=== PATIENT | female | born 1940 | race African-American/Black ===

== ENCOUNTER 2018-01-12 21:01 | Emergency (ER) | payer OTHER ==
[2018-01-12 21:14] VITALS: BMI 35.7
--- NOTE | 2018-01-12 21:16 | PDOC ---
Rapid Medical Evaluation Time Seen by Provider: 01/12/18 21:10 Medical Evaluation: Allergies Allergy/AdvReac Type Severity Reaction Status Date / Time No Known Allergies Allergy Verified 10/13/16 06:09 01/12/18 21:11 The patient presents with a chief complaint of: High blood pressure. Pt. was in her local pharmacy having her blood pressure checked and it read 185/103. She also hears a buzzing sounds in both ears. The pharmacist recommenced coming to the ED for evaluation I have performed a brief in-person evaluation of this patient; Pertinent physical exam findings: ambulatory, in no respiratory distress. BP 168 /94 here. I have ordered the following: CBC, CMP, EKG The patient will proceed to the ED for further evaluation. Discharge Disposition - Referrals Referrals: Jasson Hayes MD [Primary Care Provider] - - Patient Instructions - Post Discharge Activity
--- NOTE | 2018-01-12 23:13 | PDOC ---
History of Present Illness - General Chief Complaint: Blood Pressure Problem Stated Complaint: HIGH BLOOD PRESURE Time Seen by Provider: 01/12/18 21:10 History Source: Patient - History of Present Illness Initial Comments: 01/13/18 00:04 77 year old female with ringing in both ears since this morning. patient reports that she took 10 mg of Norvasc with no improvement of symptoms. patient went to [facility] prior to arrival noted b/p to be high 160-95. advised by pharmacist to come to the ER for evaluation. patient reports nausea and ringing in ears. 01/13/18 01:33 Past History - Past Medical History Allergies/Adverse Reactions: Allergies Allergy/AdvReac Type Severity Reaction Status Date / Time No Known Allergies Allergy Verified 01/12/18 21:12 Home Medications: Ambulatory Orders Aspirin [ASA -] 81 mg PO DAILY 10/13/16 Hydrocodone/Acetaminophen [Vicodin 5-300 mg Tablet] 1 each PO DAILY #10 tablet MDD 2 10/13/16 Methotrexate [Mexate -] 5 mg PO DAILY 10/13/16 Olmesartan/Hydrochlorothiazide [Benicar Hct 40-25 mg Tablet] 1 each PO DAILY COPD: No Diabetes: Yes HTN: Yes - Suicide/Smoking/Psychosocial Hx Smoking History: Never smoked Hx Alcohol Use: No Drug/Substance Use Hx: No *Physical Exam - Vital Signs Last Vital Signs Temp Pulse Resp BP Pulse Ox 98 F 91 H 18 168/94 99 01/12/18 21:12 01/12/18 21:12 01/12/18 21:12 01/12/18 21:12 01/12/18 21:12 ED Treatment Course - LABORATORY CBC & Chemistry Diagram: 01/13/18 00:00 01/13/18 00:00 Medical Decision Making - Medical Decision Making 01/13/18 01:40 b/p 152/85 *DC/Admit/Observation/Transfer Diagnosis at time of Disposition: Hypertension Qualifiers: Hypertension type: essential hypertension Qualified Code(s): I10 - Essential ( primary) hypertension - Discharge Dispostion Disposition: HOME - Referrals Referrals: Jasson Hayes MD [Primary Care Provider] - 24 hours - Patient Instructions Printed Discharge Instructions: DI for High Blood Pressure Additional Instructions: monitor your b/p at home follow up with your doctor as soon as possible return to the ER if symptoms worsen. - Post Discharge Activity
--- NOTE | 2018-01-12 23:14 | PDOC ---
*Physical Exam - Vital Signs Last Vital Signs Temp Pulse Resp BP Pulse Ox 98 F 91 H 18 168/94 99 01/12/18 21:12 01/12/18 21:12 01/12/18 21:12 01/12/18 21:12 01/12/18 21:12 Medical Decision Making - Medical Decision Making 01/12/18 23:14 agree with care from [facility] *DC/Admit/Observation/Transfer - Referrals Referrals: Jasson Hayes MD [Primary Care Provider] - - Patient Instructions - Post Discharge Activity
[2018-01-13 00:23] LABS: BASO % 1.2 % (0-2.0); EOS % 3.5 % (0-4.5); HEMATOCRIT 38.9 % (32.4-45.2); HEMOGLOBIN 12.8 GM/dL (10.7-15.3); LYMPH % 35.6 % (8-40); MCH 29.1 pg (25.7-33.7); MEAN CELL VOLUME 88.2 fl (80-96); MEAN PLT VOLUME 10.2 fl (7.5-11.1); MONO % 9.7 % (3.8-10.2); PLATELET COUNT 201 K/MM3 (134-434); RBC 4.41 M/mm3 (3.60-5.2); RDW 16.8 % (11.6-15.6); WHITE BLOOD COUNT 4.8 K/mm3 (4.0-10.0)
[2018-01-13 00:44] LABS: ALBUMIN 3.7 g/dl (3.4-5.0); ANION GAP 12 (8-16); BILIRUBIN,TOTAL 0.4 mg/dL (0.2-1.0); BLOOD UREA NITROGEN 21 mg/dL (7-18); CHLORIDE 110 mmol/L (98-107); CO2 25 mmol/L (21-32); CREATININE 0.8 mg/dL (0.55-1.02); GLUCOSE,RANDOM 134 mg/dL (74-106); POTASSIUM 4.3 mmol/L (3.5-5.1); SGOT/AST 18 U/L (15-37); SGPT/ALT 18 U/L (12-78); SODIUM 147 mmol/L (136-145); TOT PROT 7.7 g/dl (6.4-8.2)
[2018-01-13 00:45] LABS: ALK PHOS 82 U/L (45-117)
[2018-01-13 02:01] VITALS: BP 152/89; PULSE 89; TEMP 98.7
[2018-01-13] MEDS ORDERED: ONDANSETRON *ODT* 4 MG TABLET ONE (02:09)
--- NOTE | 2018-01-13 09:54 | EKG ---
Test Reason : Blood Pressure : / mmHG Vent. Rate : 062 BPM Atrial Rate : 062 BPM P-R Int : 184 ms QRS Dur : 082 ms QT Int : 430 ms P-R-T Axes : 066 -07 -07 degrees QTc Int : 436 ms POOR DATA QUALITY, INTERPRETATION MAY BE ADVERSELY AFFECTED NORMAL SINUS RHYTHM MINIMAL VOLTAGE CRITERIA FOR LVH, MAY BE NORMAL VARIANT POOR R WAVE PROGRESSION NO PREVIOUS ECGS AVAILABLE Confirmed by MICHELA MAYO, RIGOBERTO ([id number]) on 01/13/2018 9:54:33 AM Referred By: Confirmed By:RIGOBERTO ABERNATHY MD
== END 2018-01-13 02:13 | disposition home or self-care (01) ==
LOC: JER 21:01
DX: I10 Essential (primary) hypertension (principal); E11.9 Type 2 diabetes mellitus without complications; Z79.84 Long term (current) use of oral hypoglycemic drugs
CPT/HCPCS: 36415; 80053; 84484; 85025; 93005; 93010; 99282-25

== ENCOUNTER 2018-04-20 15:49 | Inpatient (IN) | payer OTHER ==
--- NOTE | 2018-04-20 16:37 | PDOC ---
History of Present Illness - General Chief Complaint: Shortness of Breath Stated Complaint: Revisit, Lab Variance Time Seen by Provider: 04/20/18 16:35 History Source: Patient Exam Limitations: No Limitations - History of Present Illness Initial Comments: This is a 78 YOF with h/o HTN, HLD, psoriasis (on methotrexate) who p/w 5 days of generalized weakness, lightheadedness on standing, pre-syncope, GOULD with chest tightness on exertion, and lower blood pressure than normal for her. She notes having to stop taking her blood pressure medications last weekend because her blood pressure went as low as the low 100s systolic, which is much lower than normal for her. She was being seen at [facility] today for these symptoms and had an EKG done showing new T-wave inversions in II, III, and aVF as well as Q waves in III and aVF, in addition to T wave abnormalities anteriorly. The patient states her SOB has improved with O2 via NC. She denies f/c/n/v/d/c, dysuria, abdominal pain, back pain, or other symptoms. She takes a baby ASA daily at home but has not taken full-dose ASA today or recently. Past History - Past Medical History Allergies/Adverse Reactions: Allergies Allergy/AdvReac Type Severity Reaction Status Date / Time No Known Allergies Allergy Verified 01/12/18 21:12 Home Medications: Ambulatory Orders Aspirin [ASA -] 81 mg PO DAILY 10/13/16 Methotrexate [Mexate -] 5 mg PO DAILY 10/13/16 Olmesartan/Hydrochlorothiazide [Benicar Hct 40-25 mg Tablet] 1 each PO DAILY Diclofenac Sodium [Diclofenac Sodium ER] 100 mg PO DAILY 04/20/18 Empagliflozin [Jardiance] 10 mg PO DAILY 04/20/18 Fluconazole [Diflucan] 150 mg PO ONCE 04/20/18 Multivitamins [Tab-A-Vit -] 1 tab PO DAILY 04/20/18 Nifedipine ER [Procardia Xl -] 30 mg PO DAILY 04/20/18 Simvastatin 10 mg PO DAILY 04/20/18 Heparin - 5,000 unit IVPUSH PRN PRN vial 04/21/18 Heparin - 25,000 unit IV TITR vial 04/21/18 COPD: No Diabetes: Yes HTN: Yes - Suicide/Smoking/Psychosocial Hx Smoking History: Never smoked Hx Alcohol Use: No Drug/Substance Use Hx: No Review of Systems - Review of Systems Able to Perform ROS?: Yes Constitutional: Yes: Weakness. No: Chills, Fever, Unexplained wgt Loss HEENTM: No: Nose Congestion, Throat Pain Respiratory: Yes: Cough (dry), Shortness of Breath Cardiac (ROS): Yes: Chest Pain (with exertion), Lightheadedness, Other (pre- syncope). No: Palpitations ABD/GI: Yes: Nausea (minimal during exertion). No: Constipated, Diarrhea, Vomiting : No: Burning, Dysuria Musculoskeletal: No: Back Pain, Neck Pain Integumentary: No: Bruising, Rash Neurological: No: Headache, Numbness, Tingling, Weakness Endocrine: No: Unexplained Weight Gain, Unexplained Weight Loss *Physical Exam - Vital Signs Last Vital Signs Temp Pulse Resp BP Pulse Ox 98 F 90 20 109/65 100 04/20/18 16:28 04/20/18 16:28 04/20/18 16:28 04/20/18 16:28 04/20/18 16:28 - Physical Exam General Appearance: Yes: Nourished, Appropriately Dressed, Obese, Other ( pleasant elderly female on NC who answers questions appropriately, accompanied by family). No: Apparent Distress HEENT: positive: EOMI, ANGELIA, Normal ENT Inspection, Normal Voice, Hearing Grossly Normal. negative: Scleral Icterus (R), Scleral Icterus (L), Nasal Congestion Neck: positive: Trachea midline, Supple. negative: Tender, Rigid Respiratory/Chest: positive: Lungs Clear, Normal Breath Sounds. negative: Respiratory Distress, Crackles, Rhonchi, Stridor, Wheezing Cardiovascular: positive: Regular Rhythm, Regular Rate, S1, S2. negative: JVD, Murmur Gastrointestinal/Abdominal: positive: Normal Bowel Sounds, Soft. negative: Tender, Organomegaly, Pulsatile Mass, Guarding Musculoskeletal: positive: Normal Inspection. negative: Decreased Range of Motion, Vertebral Tenderness Extremity: positive: Normal Capillary Refill, Normal Inspection, Normal Range of Motion. negative: Tender, Cyanosis Integumentary: positive: Normal Color, Dry, Warm. negative: Erythema, Rash, Bruising Neurologic: positive: inpatient auditor II-XII NML intact, Fully Oriented, Alert, Normal Mood/ Affect, Normal Response, Motor Strength 5/5. negative: EOM Palsy, Facial Droop , Numbness, Sensory Deficit, Confused, Disoriented ED Treatment Course - LABORATORY CBC & Chemistry Diagram: 04/20/18 16:36 04/20/18 16:36 Medical Decision Making - Medical Decision Making Elderly diabetic female Pt p/w 5 days generalized weakness, GOULD, chest pain on exertion. Sent by provider at [facility] after having new T-wave inversions and additional ST -T changed on EKG. Initial Vital Signs Temp Pulse Resp BP Pulse Ox 98 F 90 20 109/65 100 04/20/18 16:28 04/20/18 16:28 04/20/18 16:28 04/20/18 16:28 04/20/18 16:28 Exam: Results as noted in Physical Exam section. DDX IBNLT: ACS, pericarditis, tamponade, aortic dissection, AAA, PTX, PE, esophageal tear, esophagitis (e.g. pill, infectious), esophageal stricture, esophageal FB, gastritis, PUD, pancreatitis, cholecystitis, cholangitis, colitis , bowel perforation, PNA/bronchitis, pleurisy, pleuritis, MVP, pulmonary HTN, musculoskeletal, panic/anxiety, etc. W/U ordered: CBCD CMP Mg Phos Lipase Troponin CK CKMB Coags T&S Blood gas UA UCx EKG CXR. TX ordered: monitor, ASA 324, O2 via NC EKG: Reviewed; results as noted in ECG Review section. CXR: enlarged heart, otherwise nothing acute. Laboratory Tests 04/20/18 04/20/18 04/20/18 16:36 16:36 16:36 WBC 5.7 RBC 4.89 Hgb 14.0 Hct 42.7 MCV 87.3 MCH 28.7 MCHC 32.9 RDW 17.3 H Plt Count 198 MPV 10.5 Absolute Neuts (auto) 3.0 Neutrophils % 52.1 Lymphocytes % 33.5 Monocytes % 11.2 H Eosinophils % 2.1 Basophils % 1.1 Nucleated RBC % 0 PT with INR 13.50 H INR 1.19 H Sodium 141 Potassium 4.1 Chloride 107 Carbon Dioxide 22 Anion Gap 12 BUN 26 H Creatinine 1.4 H Creat Clearance w eGFR 36.37 Random Glucose 122 H Calcium 8.8 Magnesium 2.5 H Total Bilirubin 0.7 AST 25 ALT 20 Alkaline Phosphatase 68 Creatine Kinase 158 Troponin I 0.17 H B-Natriuretic Peptide 7372.13 H Total Protein 8.1 Albumin 3.7 Reassessment: dyspnea on repositioning but otherwise feeling well, pulse ox 98 on 4 LPM. ADMIT Repeat EKG ordered. Patient has continued new supplemental O2 requirement. The Pt is unsafe for discharge at this time. They require further hospital observation, workup, and treatment. Spoke with Dr. Rowe; in agreement Pt to be admitted to to: Telemetry IP. Decision to Admit order placed to Dr. Rowe. Consult order placed to business objects consultant Dr. Estrada as requested by Dr. Rowe. Bedside US reveals possible right heart strain. Chest CTA PE Protocol ordered. Patient's care endorsed to Drs. Garza and Sarah. *DC/Admit/Observation/Transfer Diagnosis at time of Disposition: Elevated troponin, Elevated brain natriuretic peptide (BNP) level, TIFFANY (acute kidney injury) - Discharge Dispostion Condition at time of disposition: Guarded Decision to Admit order: Yes - Referrals - Patient Instructions - Post Discharge Activity
[2018-04-20] MEDS ORDERED: ASPIRIN 81 MG CHEWABLE TABLETS PO ONE (17:09)
[2018-04-20 17:20] LABS: BASO % 1.1 % (0-2.0); EOS % 2.1 % (0-4.5); HEMATOCRIT 42.7 % (32.4-45.2); LYMPH % 33.5 % (8-40); MCH 28.7 pg (25.7-33.7); MCHC 32.9 g/dl (32.0-36.0); MEAN CELL VOLUME 87.3 fl (80-96); MEAN PLT VOLUME 10.5 fl (7.5-11.1); MONO % 11.2 % (3.8-10.2); NEUT % 52.1 % (42.8-82.8); PLATELET COUNT 198 K/MM3 (134-434); RBC 4.89 M/mm3 (3.60-5.2); RDW 17.3 % (11.6-15.6); WHITE BLOOD COUNT 5.7 K/mm3 (4.0-10.0)
[2018-04-20] MEDS ORDERED: ASPIRIN 81 MG CHEWABLE TABLETS ONE (17:20)
[2018-04-20 17:43] LABS: INR 1.19 (0.82-1.09); PROTHROMBIN TIME (PATIENT) 13.5 SEC (9.7-13.0)
[2018-04-20 17:44] LABS: CHLORIDE 107 mmol/L (98-107); POTASSIUM 4.1 mmol/L (3.5-5.1); SODIUM 141 mmol/L (136-145)
[2018-04-20 18:03] LABS: ALBUMIN 3.7 g/dl (3.4-5.0); ALK PHOS 68 U/L (45-117); ANION GAP 12 (8-16); BILIRUBIN,TOTAL 0.7 mg/dL (0.2-1.0); BLOOD UREA NITROGEN 26 mg/dL (7-18); CALCIUM 8.8 mg/dL (8.5-10.1); CO2 22 mmol/L (21-32); CREATININE 1.4 mg/dL (0.55-1.02); GLUCOSE,RANDOM 122 mg/dL (74-106); MAGNESIUM 2.5 mg/dL (1.8-2.4); N-TERMINAL BNP 7372.13 pg/ml (5-450); SGOT/AST 25 U/L (15-37); SGPT/ALT 20 U/L (12-78); TOT PROT 8.1 g/dl (6.4-8.2)
--- NOTE | 2018-04-20 19:06 | PDOC ---
Attending Attestation - HPI HPI: 04/20/18 19:13 78 YOF with h/o HTN, HLD, psoriasis (on methotrexate) who p/w 5 days of generalized weakness, lightheadedness on standing, pre-syncope, GOULD with chest tightness on exertion for several weeks total. Patient was seen at [facility] today for these symptoms and had an abnormal EKG and was sent to the ER for further evaluation. Patient states she has had en echocardiogram in the past which was normal. Patient denies nausea, vomiting, dysuria, abdominal pain, back pain, or other symptoms. Allergies: NKA Past surgical history: None reported. Social history: No reported alcohol, drug, or cigarette use. PCP: Dr. Jasson Hayes - Physicial Exam PE: 04/20/18 19:13 General: Well appearing, awake and alert, NAD. Neck: neck supple, FROM,+JVD, no LAD or masses Lungs: CTAB, normal and even respirations, no respiratory distress, on supp O2 NC Heart: RRR, 2+ peripheral pulses throughout, nonpitting pedal edema, Abdomen: soft, NTND, no peritoneal signs. No CVAT Back: nontender, normal inspection and ROM MSK: SILVA x4, ROM intact. No clubbing or cyanosis. normal bulk and tone. no calf tenderness Neuro: alert, oriented appropriately; no focal neurologic deficits. SILT, 5/5 distal and prox strength in all extrem. Skin: warm and well perfused, cap refill <2 sec, normal color <Joanne Galindo - Last Filed: 04/20/18 19:13> - Resident Resident Name: Patterson,Mary - Medical Decision Making 04/20/18 19:04 78 YOF with h/o HTN, HLD, psoriasis (on methotrexate) who p/w 5 days of generalized weakness, lightheadedness on standing, pre-syncope, GOULD with chest tightness on exertion x several weeks total. no leg swelling or pain, prolonged immobilization or surgeries. bedside POCUS echo thoracic exam with b/l A line pattern. RV>LV, no effusion. normal EF. IVC difficult to visualize due to habitus. doubt AIS or effusion. Trop positive 0.17, BNP elevated. ASA 324mg x1 given. EKG with new changes including TWI in V1-V6, inferior leads II, III, AVF (new from prior normal). remainder of lytes and labs wnl. CXR with cardiomegaly. CTPA to r/o PE given new RV dilation, difficult to assess strain. Lovenox 100mg SQ x1. Admit to Dr. Rowe. Cardiology cs as inpatient. 04/20/18 19:57 <La Dillon - Last Filed: 04/20/18 19:58>
[2018-04-20] MEDS ORDERED: SODIUM CHLORIDE 1,000 ML IV STA (20:06)
--- NOTE | 2018-04-20 20:07 | PDOC ---
*Physical Exam - Vital Signs Last Vital Signs Temp Pulse Resp BP Pulse Ox 98 F 76 24 109/65 95 04/20/18 16:28 04/20/18 19:17 04/20/18 19:17 04/20/18 16:28 04/20/18 19:17 ED Treatment Course - LABORATORY CBC & Chemistry Diagram: 04/20/18 16:36 04/20/18 16:36 - ADDITIONAL ORDERS Additional order review: Laboratory Results 04/20/18 04/20/18 04/20/18 16:36 16:36 16:36 PT with INR 13.50 H INR 1.19 H Sodium 141 Potassium 4.1 Chloride 107 Carbon Dioxide 22 Anion Gap 12 BUN 26 H Creatinine 1.4 H Creat Clearance w eGFR 36.37 Random Glucose 122 H Calcium 8.8 Magnesium 2.5 H Total Bilirubin 0.7 AST 25 ALT 20 Alkaline Phosphatase 68 Creatine Kinase 158 Troponin I 0.17 H B-Natriuretic Peptide 7372.13 H Total Protein 8.1 Albumin 3.7 Blood Type B POSITIVE Antibody Screen Negative 04/20/18 16:36 RBC 4.89 MCV 87.3 MCHC 32.9 RDW 17.3 H MPV 10.5 Neutrophils % 52.1 Lymphocytes % 33.5 Monocytes % 11.2 H Eosinophils % 2.1 Basophils % 1.1 - Medications Given in the ED: ED Medications Discontinued Medications Generic Name Dose Route Start Last Admin Trade Name Freq PRN Reason Stop Dose Admin Aspirin 324 mg 04/20/18 17:09 04/20/18 17:30 Asa - PO 04/20/18 17:10 324 mg ONCE ONE Administration Medical Decision Making - Medical Decision Making 04/20/18 20:07 Creatinine 1.4, with GFR 36.37 04/20/18 20:07 We will administer 1L of NS. The patient is cleared to get contrast with CT scan. 04/20/18 21:39 CTA chest: \Large saddle embolus in the right main pulmonary artery extending to and involving the proximal branches of the right upper, middle and lower lobe pulmonary artery, with worse involvement of the lower lobe pulmonary artery segmental and subsegmental branches. There is also a saddle embolus in the left main pulmonary artery extending to the left upper and lower lobe pulmonary artery segmental and subsegmental bifurcations. Dilated main pulmonary artery measuring 4.8 cm usually suggestive of hypertension. There is suggestion of right ventricular strain. Borderline aneurysmal dilatation of the ascending aorta without evidence of dissection. No acute lung disease is present. Mild deformity of the left renal lateral contour for which correlation with renal ultrasound is needed. There are also a couple of small bilateral renal simple cysts. *DC/Admit/Observation/Transfer Diagnosis at time of Disposition: Elevated troponin, Elevated brain natriuretic peptide (BNP) level, TIFFANY (acute kidney injury) - Discharge Dispostion Condition at time of disposition: Guarded - Referrals - Patient Instructions - Post Discharge Activity
[2018-04-20] MEDS ORDERED: HEPARIN NA (PORCINE) 5,000 UNITS/ML 1ML VIAL IVPUSH PRN ×2 (21:40)
[2018-04-20] MEDS ORDERED: HEPARIN - 25,000 UNIT in SODIUM CHLORIDE 495 ML IV SCH (21:45)
[2018-04-20] MEDS ORDERED: HEPARIN INFUSION - 25,000 UNITS/500 ML INFUS.BAG IVPB ONE (21:50)
[2018-04-20] MEDS ORDERED: HEPARIN NA (PORCINE) 5,000 UNITS/ML 1ML VIAL ONE (21:50)
[2018-04-20 23:31] VITALS: TEMP 97.5
[2018-04-20 23:36] VITALS: BMI 34.2
--- NOTE | 2018-04-21 00:03 | CONSULT ---
Consultation: REQUESTING PROVIDER: CONSULT REQUEST: We have been asked to medically evaluate this patient for ( intensive care). HISTORY OF PRESENT ILLNESS: 78 YOF with h/o HTN, HLD, psoriasis (on methotrexate ) who p/w 5 days of generalized weakness, lightheadedness on standing, pre- syncope, GOULD with chest tightness on exertion for several weeks total. Patient was seen at [facility] today for these symptoms and had an abnormal EKG and was sent to the ER for further evaluation. In ER CTA was done which shows saddle embolism with strain on right side of heart. Patient was given 1 L of IV fluid and her BP increased from 109/65 to 144 /75. Trop positive 0.17, BNP elevated. ASA 324mg x1 given. EKG with new changes including TWI in V1-V6, inferior leads II, III, AVF (new from prior normal). remainder of lytes and labs wnl. CXR with cardiomegaly. bedside POCUS echo ( done by ER doc) thoracic exam with b/l A line pattern. RV> LV, no effusion. normal EF. IVC difficult to visualize due to habitus. doubt AIS or effusion. Patient started on heparin drip ER. maintaing a saturation of 94% on 2 L on Nasal canula, AL 80, BP 111/94 PHYSICAL EXAMINATION Vital Signs - 24 hr 04/20/18 04/20/18 04/20/18 16:28 19:04 19:17 Temperature 98 F Pulse Rate 90 Pulse Rate [ 76 Apical] Respiratory 20 20 24 Rate Blood Pressure 109/65 Blood Pressure [Left Arm] O2 Sat by Pulse 100 96 95 Oximetry (%) 04/20/18 04/20/18 04/20/18 22:06 23:30 23:37 Temperature 97.5 F L 97.5 F L Pulse Rate 74 87 Pulse Rate [ 72 Apical] Respiratory 20 22 21 Rate Blood Pressure 144/75 Blood Pressure 144/84 [Left Arm] O2 Sat by Pulse 96 Oximetry (%) GENERAL: Awake, alert, and fully oriented, in no acute distress. HEAD: Normal with no signs of trauma. EARS, NOSE, THROAT: Moist mucous membranes. LUNGS: Breath sounds equal, decrease air entry at bases No wheezes, and no crackles. No accessory muscle use. HEART: s1s2 normal, regular. ABDOMEN: Soft, nontender, not distended, normoactive bowel sounds, no guarding, no rebound, no masses. UPPER EXTREMITIES: 2+ pulses, warm, well-perfused. No clubbing. Cap refill <2 seconds. No peripheral edema. LOWER EXTREMITIES: well-perfused. No calf tenderness. No peripheral edema. PSYCHIATRIC: Cooperative. Good eye contact. SKIN: Warm, dry, Laboratory Results - last 24 hr 04/20/18 04/20/18 04/20/18 16:36 16:36 16:36 WBC 5.7 RBC 4.89 Hgb 14.0 Hct 42.7 MCV 87.3 MCH 28.7 MCHC 32.9 RDW 17.3 H Plt Count 198 MPV 10.5 Absolute Neuts (auto) 3.0 Neutrophils % 52.1 Lymphocytes % 33.5 Monocytes % 11.2 H Eosinophils % 2.1 Basophils % 1.1 Nucleated RBC % 0 PT with INR 13.50 H INR 1.19 H PTT (Actin FS) Sodium 141 Potassium 4.1 Chloride 107 Carbon Dioxide 22 Anion Gap 12 BUN 26 H Creatinine 1.4 H Creat Clearance w eGFR 36.37 Random Glucose 122 H Calcium 8.8 Magnesium 2.5 H Total Bilirubin 0.7 AST 25 ALT 20 Alkaline Phosphatase 68 Creatine Kinase 158 Creatine Kinase Index 1.1 CK-MB (CK-2) 1.77 Troponin I 0.17 H B-Natriuretic Peptide 7372.13 H Total Protein 8.1 Albumin 3.7 Blood Type Antibody Screen 04/20/18 04/20/18 04/20/18 16:36 21:45 23:00 WBC RBC Hgb Hct MCV MCH MCHC RDW Plt Count MPV Absolute Neuts (auto) Neutrophils % Lymphocytes % Monocytes % Eosinophils % Basophils % Nucleated RBC % PT with INR INR PTT (Actin FS) 35.2 Sodium Potassium Chloride Carbon Dioxide Anion Gap BUN Creatinine Creat Clearance w eGFR Random Glucose Calcium Magnesium Total Bilirubin AST ALT Alkaline Phosphatase Creatine Kinase Creatine Kinase Index CK-MB (CK-2) Troponin I B-Natriuretic Peptide Total Protein Albumin Blood Type B POSITIVE B POSITIVE Antibody Screen Negative CBCD WBC 5.7 K/mm3 (4.0-10.0) 04/20/18 16:36 RBC 4.89 M/mm3 (3.60-5.2) 04/20/18 16:36 Hgb 14.0 GM/dL (10.7-15.3) 04/20/18 16:36 Hct 42.7 % (32.4-45.2) 04/20/18 16:36 MCV 87.3 fl (80-96) 04/20/18 16:36 MCHC 32.9 g/dl (32.0-36.0) 04/20/18 16:36 RDW 17.3 % (11.6-15.6) H 04/20/18 16:36 Plt Count 198 K/MM3 (134-434) 04/20/18 16:36 MPV 10.5 fl (7.5-11.1) 04/20/18 16:36 CMP Sodium 141 mmol/L (136-145) 04/20/18 16:36 Potassium 4.1 mmol/L (3.5-5.1) 04/20/18 16:36 Chloride 107 mmol/L (98-107) 04/20/18 16:36 Carbon Dioxide 22 mmol/L (21-32) 04/20/18 16:36 Anion Gap 12 (8-16) 04/20/18 16:36 BUN 26 mg/dL (7-18) H 04/20/18 16:36 Creatinine 1.4 mg/dL (0.55-1.02) H 04/20/18 16:36 Creat Clearance w eGFR 36.37 (>60) 04/20/18 16:36 Random Glucose 122 mg/dL (74-106) H 04/20/18 16:36 Calcium 8.8 mg/dL (8.5-10.1) 04/20/18 16:36 Total Bilirubin 0.7 mg/dL (0.2-1.0) 04/20/18 16:36 AST 25 U/L (15-37) 04/20/18 16:36 ALT 20 U/L (12-78) 04/20/18 16:36 Alkaline Phosphatase 68 U/L (45-117) 04/20/18 16:36 Total Protein 8.1 g/dl (6.4-8.2) 04/20/18 16:36 Albumin 3.7 g/dl (3.4-5.0) 04/20/18 16:36 CARDIAC ENZYMES Creatine Kinase 158 IU/L (26-192) 04/20/18 16:36 Troponin I 0.17 ng/ml (0.00-0.05) H 04/20/18 16:36 Active Medications Generic Name Dose Route Start Last Admin Trade Name Freq PRN Reason Stop Dose Admin Heparin Sodium (Porcine) 1,000 unit 04/20/18 21:40 Heparin - IVPUSH PRN PRN Heparin Heparin Sodium (Porcine) 5,000 unit 04/20/18 21:40 04/20/18 22:02 Heparin - IVPUSH 5,000 unit PRN PRN Administration Heparin Heparin Sodium (Porcine) 25, 500 mls @ 20 mls/hr 04/20/18 21:45 04/20/18 22: 02 000 unit/ Sodium Chloride IV 1,000 unit/hr TITR PAUL 20 mls/hr Administration Protocol 1,000 UNIT/HR ASSESSMENT/PLAN: Pulmonary embolism. H/o HTN HLD, psoriasis (on methotrexate) Plan continue with Heparin drip. monitor aptt watch for bleeding. cardiac monitoring monitor vitals. monitor intake and output. get ECHO and duplex scan Discussed with Dr Emmett BUTLER, advised to transfer patinet to [facility]. Discussed with Dr ying in [facility], patient got accepted for transfer to [facility] ICU. discussed with Dr De La Cruz ( ICU doctor professor of environmental studies in [facility]) Hospitalist team aware. Discussed with patient and her family at bed side, they agreed for transfer. Disk of CTA included in discharge packet. will transfer the patient once bed is available. demographics faxed. [facility] transfer center number [phone] Visit type - Emergency Visit Emergency Visit: Yes ED Registration Date: 04/20/18 Care time: The patient presented to the Emergency Department on the above date and was hospitalized for further evaluation of their emergent condition. - New Patient This patient is new to me today: Yes Date on this admission: 04/21/18 - Critical Care Critical Care patient: Yes Total Critical Care Time (in minutes): 60 Critical Care Statement: The care of this patient involved high complexity decision making to prevent further life threatening deterioration of the patient 's condition and/or to evaluate & treat vital organ system(s) failure or risk of failure.
--- NOTE | 2018-04-21 00:33 | HP ---
CHIEF COMPLAINT: SOB GOULD x 1 week PCP: HISTORY OF PRESENT ILLNESS: Pt is a 78 y/o F with HTN, hLD, Psoriasis, DM (dx 2 months ago), ADINA, heart murmur, OA, who presented to ED with GOULD and Chest heaviness x 1 week worse over the last 3 d. Pt went to [facility] where an EKG reportedly showed inferior q waves and twi. Pt was sent to ED, where CTA was done and revealed b/l saddle PE. Trop in ED was 0.11 and BNP was 7372 with no noted hx CHF. Pt was transferred to ICU ER course was notable for: (1) as above (2) (3) Recent Travel: denies PAST MEDICAL HISTORY: HTN, hLD, Psoriasis, DM (dx 2 months ago), ADINA, heart murmur, OA PAST SURGICAL HISTORY: L wrist surg remote Social History: Smoking: Alcohol: Drugs: Family History: Allergies No Known Allergies Allergy (Verified 01/12/18 21:12) HOME MEDICATIONS: Home Medications Medication Instructions Recorded Aspirin [ASA -] 81 mg PO DAILY 10/13/16 Methotrexate [Mexate -] 5 mg PO DAILY 10/13/16 Olmesartan/Hydrochlorothiazide 1 each PO DAILY 10/13/16 [Benicar Hct 40-25 mg Tablet] Diclofenac Sodium [Diclofenac 100 mg PO DAILY 04/20/18 Sodium ER] Empagliflozin [Jardiance] 10 mg PO DAILY 04/20/18 Fluconazole [Diflucan] 150 mg PO ONCE 04/20/18 Multivitamins [Tab-A-Vit -] 1 tab PO DAILY 04/20/18 Nifedipine ER [Procardia Xl -] 30 mg PO DAILY 04/20/18 Simvastatin 10 mg PO DAILY 04/20/18 Heparin - 5,000 unit IVPUSH PRN PRN vial 04/21/18 Heparin - 25,000 unit IV TITR vial 04/21/18 REVIEW OF SYSTEMS CONSTITUTIONAL: Absent: fever, chills, diaphoresis, generalized weakness, malaise, loss of appetite, weight change HEENT: Absent: rhinorrhea, nasal congestion, throat pain, throat swelling, difficulty swallowing, mouth swelling, ear pain, eye pain, visual changes CARDIOVASCULAR: chest heaviness, GOULD, SOB Absent: chest pain, syncope, palpitations, irregular heart rate, lightheadedness , peripheral edema RESPIRATORY: Absent: cough, shortness of breath, dyspnea with exertion, orthopnea, wheezing, stridor, hemoptysis GASTROINTESTINAL: Absent: abdominal pain, abdominal distension, nausea, vomiting, diarrhea, constipation, melena, hematochezia GENITOURINARY: Absent: dysuria, frequency, urgency, hesitancy, hematuria, flank pain, genital pain MUSCULOSKELETAL: Absent: myalgia, arthralgia, joint swelling, back pain, neck pain SKIN: Absent: rash, itching, pallor HEMATOLOGIC/IMMUNOLOGIC: Absent: easy bleeding, easy bruising, lymphadenopathy, frequent infections ENDOCRINE: Absent: unexplained weight gain, unexplained weight loss, heat intolerance, cold intolerance NEUROLOGIC: Absent: headache, focal weakness or paresthesias, dizziness, unsteady gait, seizure, mental status changes, bladder or bowel incontinence PSYCHIATRIC: Absent: anxiety, depression, suicidal or homicidal ideation, hallucinations. PHYSICAL EXAMINATION Vital Signs - 24 hr 04/20/18 04/20/18 04/20/18 16:28 19:04 19:17 Temperature 98 F Pulse Rate 90 Pulse Rate [ 76 Apical] Respiratory 20 20 24 Rate Blood Pressure 109/65 Blood Pressure [Left Arm] O2 Sat by Pulse 100 96 95 Oximetry (%) 04/20/18 04/20/18 04/20/18 22:06 23:30 23:37 Temperature 97.5 F L 97.5 F L Pulse Rate 74 87 Pulse Rate [ 72 Apical] Respiratory 20 22 21 Rate Blood Pressure 144/75 Blood Pressure 144/84 [Left Arm] O2 Sat by Pulse 96 Oximetry (%) Gen: NAD lying in bed HEENT: NCAT, PERRL, EOMI Neck: supple, no jvd cardio: rrr, norm s1s2, sys ejection murmur at cardiac base lungs: cta b/l abd: obese, soft nontender ext: no calf tenderness, no pitting, 2+ pulses Laboratory Results - last 24 hr 04/20/18 04/20/18 04/20/18 16:36 16:36 16:36 WBC 5.7 RBC 4.89 Hgb 14.0 Hct 42.7 MCV 87.3 MCH 28.7 MCHC 32.9 RDW 17.3 H Plt Count 198 MPV 10.5 Absolute Neuts (auto) 3.0 Neutrophils % 52.1 Lymphocytes % 33.5 Monocytes % 11.2 H Eosinophils % 2.1 Basophils % 1.1 Nucleated RBC % 0 PT with INR 13.50 H INR 1.19 H PTT (Actin FS) Sodium 141 Potassium 4.1 Chloride 107 Carbon Dioxide 22 Anion Gap 12 BUN 26 H Creatinine 1.4 H Creat Clearance w eGFR 36.37 Random Glucose 122 H Calcium 8.8 Magnesium 2.5 H Total Bilirubin 0.7 AST 25 ALT 20 Alkaline Phosphatase 68 Creatine Kinase 158 Creatine Kinase Index 1.1 CK-MB (CK-2) 1.77 Troponin I 0.17 H B-Natriuretic Peptide 7372.13 H Total Protein 8.1 Albumin 3.7 Blood Type Antibody Screen 04/20/18 04/20/18 04/20/18 16:36 21:45 23:00 WBC RBC Hgb Hct MCV MCH MCHC RDW Plt Count MPV Absolute Neuts (auto) Neutrophils % Lymphocytes % Monocytes % Eosinophils % Basophils % Nucleated RBC % PT with INR INR PTT (Actin FS) 35.2 Sodium Potassium Chloride Carbon Dioxide Anion Gap BUN Creatinine Creat Clearance w eGFR Random Glucose Calcium Magnesium Total Bilirubin AST ALT Alkaline Phosphatase Creatine Kinase Creatine Kinase Index CK-MB (CK-2) Troponin I B-Natriuretic Peptide Total Protein Albumin Blood Type B POSITIVE B POSITIVE Antibody Screen Negative ASSESSMENT/PLAN: Pt is a 78 y/o F with PMH HTN, HLD, Psoriasis, DM (dx 2 months ago), ADINA, heart murmur, OA who presented to ED sent from [facility] with new onset chest heaviness and GOULD. Pt found to have b/l PE. #PE -b/l saddle -on Hep ggt -ICU -vitals stable -trop 0.11 -BNP 7000 #TIFFANY -new onset -caution with fluids in setting of heart strain with trop and BNP elevation #HTN -bp controlled #Dm -ISS -BGM #HLD -stable #FEN -Not on fluid -lytes wnl -dm diet #PPx -hep ggt #Dispo -ICU. Transfer to [facility]. Accepting physician: Damon Knight MD PGY-2 IM Visit type - Emergency Visit Emergency Visit: Yes ED Registration Date: 04/20/18 Care time: The patient presented to the Emergency Department on the above date and was hospitalized for further evaluation of their emergent condition. - New Patient This patient is new to me today: Yes Date on this admission: 04/21/18 - Critical Care Critical Care patient: Yes Total Critical Care Time (in minutes): 20 Hospitalist Screening - Colonoscopy Questionnaire Colonoscopy Questionnaire: Colonoscopy Questionnaire - Patient: 50 - 75 years old and never had a screening colonoscopy: Unknown History of colon or rectal polyps, or CA: Unknown History of IBD, Crohn's disease or UC: Unknown History of abdominal radiation therapy as a child: Unknown - Relative: 1 with colon or rectal CA, or polyps at age 60 or younger: Unknown Colon or rectal CA diagnosed at age 45 or younger: Unknown Multiple relatives with colon or rectal CA: Unknown - Outcome: Screening Result: Negative Screen
[2018-04-21 02:27] VITALS: BP 111/54; PULSE 74
--- NOTE | 2018-04-21 03:25 | PN ---
Teaching Attending Note Name of Resident: Yuan Knight ATTENDING PHYSICIAN STATEMENT I saw and evaluated the patient. I reviewed the resident's note and discussed the case with the resident. I agree with the resident's findings and plan as documented. SUBJECTIVE: Patient is a 78 year old woman with h/o HTN, HLD, psoriasis (on methotrexate) who p/w 5 days of generalized weakness, lightheadedness on standing, pre-syncope , GOULD with chest tightness on exertion, and lower blood pressure than normal for her. She notes having to stop taking her blood pressure medications last weekend because her blood pressure went as low as the low 100s systolic, which is much lower than normal for her. She was being seen at [facility] today for these symptoms and had an EKG done showing new T-wave inversions in II, III, and aVF as well as Q waves in III and aVF, in addition to T wave abnormalities anteriorly. OBJECTIVE: Alert and in no distress. Vital Signs Period Temp Pulse Resp BP Sys/Chao Pulse Ox Last 24 Hr 97.5 F-98 F 71-90 20-24 109-144/54-94 95-100 HEENT: No Jaundice, eye redness or discharge, PERRLA, EOMI. Normocephalic, atraumatic. External ears are normal and hearing is grossly intact. No nasal discharge. Neck: Supple, nontender. No palpable adenopathy or thyromegaly. No JVD Chest: Good effort. Clear to auscultation and percussion. Heart: Regular. No S3, rub or murmur Abdomen: Not distended, soft, nontender and no HSM. No rebound or guarding. Normoactive bowel sounds. Ext: Peripheral pulses intact. No leg edema. Skin: Warm and dry. No petechiae, rash or ecchymosis. Neuro: Alert. Oriented x3. CN 2-12 grossly intact. Sensation grossly intact in all four extremities and DTR are symmetric. Home Medications Medication Instructions Recorded Aspirin [ASA -] 81 mg PO DAILY 10/13/16 Methotrexate [Mexate -] 5 mg PO DAILY 10/13/16 Olmesartan/Hydrochlorothiazide 1 each PO DAILY 10/13/16 [Benicar Hct 40-25 mg Tablet] Diclofenac Sodium [Diclofenac 100 mg PO DAILY 04/20/18 Sodium ER] Empagliflozin [Jardiance] 10 mg PO DAILY 04/20/18 Fluconazole [Diflucan] 150 mg PO ONCE 04/20/18 Multivitamins [Tab-A-Vit -] 1 tab PO DAILY 04/20/18 Nifedipine ER [Procardia Xl -] 30 mg PO DAILY 04/20/18 Simvastatin 10 mg PO DAILY 04/20/18 Heparin - 5,000 unit IVPUSH PRN PRN vial 04/21/18 Heparin - 25,000 unit IV TITR vial 04/21/18 Abnormal Lab Results 04/20/18 04/20/18 04/20/18 16:36 16:36 16:36 RDW 17.3 H Monocytes % 11.2 H PT with INR 13.50 H INR 1.19 H BUN 26 H Creatinine 1.4 H Random Glucose 122 H Magnesium 2.5 H Troponin I 0.17 H B-Natriuretic Peptide 7372.13 H ASSESSMENT AND PLAN: 1. Saddle pulmonary embolism - Patient found to have PE, started on IV heparin drip and is now being transferred to [facility] for further care. 2. TIFFANY - Etiology unclear. Continue fluid support. 3. DVT prophylaxis - On IV heparin drip 4. Elevated troponin - Will continue work up at [facility] to rule out ACS. 5. Advance directives - Full code
[2018-04-21] MEDS ORDERED: INSULIN SLIDING SCALE (NOVOLOG) 1 VIAL SQ SCH (07:00)
--- NOTE | 2018-04-21 09:28 | EKG ---
Test Reason : Blood Pressure : / mmHG Vent. Rate : 078 BPM Atrial Rate : 078 BPM P-R Int : 162 ms QRS Dur : 078 ms QT Int : 412 ms P-R-T Axes : 043 008 -19 degrees QTc Int : 469 ms SINUS RHYTHM WITH PREMATURE ATRIAL COMPLEXES INFERIOR INFARCT (CITED ON OR BEFORE 20-APR-2018) ANTEROSEPTAL INFARCT (CITED ON OR BEFORE 20-APR-2018) ABNORMAL ECG WHEN COMPARED WITH ECG OF 20-APR-2018 16:25, PREMATURE ATRIAL COMPLEXES ARE NOW PRESENT Confirmed by RIGOBERTO ABERNATHY MD ([id number]) on 04/21/2018 9:27:31 AM Referred By: Confirmed By:RIGOBERTO ABERNATHY MD
--- NOTE | 2018-04-21 09:29 | EKG ---
Test Reason : Blood Pressure : / mmHG Vent. Rate : 091 BPM Atrial Rate : 091 BPM P-R Int : 172 ms QRS Dur : 076 ms QT Int : 396 ms P-R-T Axes : 036 012 -38 degrees QTc Int : 487 ms NORMAL SINUS RHYTHM INFERIOR INFARCT , AGE UNDETERMINED ANTEROSEPTAL INFARCT , AGE UNDETERMINED T WAVE ABNORMALITY, CONSIDER LATERAL ISCHEMIA ABNORMAL ECG Confirmed by RIGOBERTO ABERNATHY MD ([id number]) on 04/21/2018 9:29:08 AM Referred By: Confirmed By:RIOGBERTO ABERNATHY MD
[2018-04-21] MEDS ORDERED: MUPIROCIN 2% TOPICAL OINTMENT FOR DECOLONIZATION NS SCH (10:00)
[2018-04-21] MEDS ORDERED: HYDROCHLOROTHIAZIDE 25 MG TABLET (FP) PO SCH (10:00)
[2018-04-21] MEDS ORDERED: PATIENT'S OWN MEDICATION (NON-FORMULARY) (Empagliflozin [Jardiance] 10 MG) PO SCH (10:00)
[2018-04-21] MEDS ORDERED: VALSARTAN 160 MG TABLET (UD) PO SCH (10:00)
[2018-04-21] MEDS ORDERED: NIFEdipine E.R. 30 MG TABLET (FP) PO SCH (10:00)
[2018-04-21] MEDS ORDERED: PATIENT'S OWN MEDICATION (NON-FORMULARY) (Olmesartan/Hydrochlorothiazide [Benicar Hct 40-2 PO SCH (10:00)
[2018-04-21] MEDS ORDERED: METHOTREXATE 2.5 MG TABLET PO SCH (10:00)
[2018-04-21] MEDS ORDERED: ASPIRIN 81 MG CHEWABLE TABLETS PO SCH (10:00)
[2018-04-21] MEDS ORDERED: MULTIVITAMINS (DAILY MVI) TABLET (FP) PO SCH (10:00)
--- NOTE | 2018-04-21 12:57 | DS ---
Physical Examination Vital Signs: Vital Signs Temperature 97.5 F L 04/20/18 23:37 Pulse Rate 74 04/21/18 02:00 Respiratory Rate 21 04/21/18 02:00 Blood Pressure 111/54 04/21/18 02:00 O2 Sat by Pulse Oximetry (%) 96 04/20/18 22:06 Labs: CBC, BMP 04/20/18 16:36 04/20/18 16:36 Discharge Summary Reason For Visit: ACUTE KIDNEY INJURY; DYSPNEA ON EXERTION Condition: Stable - Instructions Diet, Activity, Other Instructions: transfer to [facility] for further management under Dr ying. Referrals: Jasson Hayes MD [Primary Care Provider] - Disposition: TRANSFER ACUTE CARE/OTHER HOSP - Home Medications Comprehensive Discharge Medication List: Ambulatory Orders Aspirin [ASA -] 81 mg PO DAILY 10/13/16 Methotrexate [Mexate -] 5 mg PO DAILY 10/13/16 Olmesartan/Hydrochlorothiazide [Benicar Hct 40-25 mg Tablet] 1 each PO DAILY Diclofenac Sodium [Diclofenac Sodium ER] 100 mg PO DAILY 04/20/18 Empagliflozin [Jardiance] 10 mg PO DAILY 04/20/18 Fluconazole [Diflucan] 150 mg PO ONCE 04/20/18 Multivitamins [Tab-A-Vit -] 1 tab PO DAILY 04/20/18 Nifedipine ER [Procardia Xl -] 30 mg PO DAILY 04/20/18 Simvastatin 10 mg PO DAILY 04/20/18 Heparin - 5,000 unit IVPUSH PRN PRN vial 04/21/18 Heparin - 25,000 unit IV TITR vial 04/21/18
[2018-04-21] MEDS ORDERED: ATORVASTATIN CA 10 MG TABLET (FP) PO SCH (22:00)
[2018-04-21] MEDS ORDERED: CHLORHEXIDINE GLUCONATE 4% CLEANSER FOR DECOLONIZATION TP SCH (22:00)
== END 2018-04-21 02:40 | disposition short-term general hospital (02) | DRG 176 ==
LOC: JER 15:49 → JERBED 19:04 → JICU 23:17
PROVIDERS: ADMIT Internal Medicine; ATTEND Internal Medicine
DX: I26.92 Saddle embolus of pulmonary artery without acute cor pulmonale (principal); N17.9 Acute kidney failure, unspecified; I10 Essential (primary) hypertension; E78.5 Hyperlipidemia, unspecified; L40.9 Psoriasis, unspecified; E11.9 Type 2 diabetes mellitus without complications; G47.33 Obstructive sleep apnea (adult) (pediatric); M19.90 Unspecified osteoarthritis, unspecified site; R01.1 Cardiac murmur, unspecified
CPT/HCPCS: 36415; 71046-TC-FY; 71275-TC; 80053; 82550; 82553; 83735; 83880; 84484; 85025; 85610; 85730; 86850; 86900; 86901; 93005; 93010; 99285-25; J1644

== ENCOUNTER 2022-10-25 14:11 | Inpatient (IN) | payer OTHER ==
[2022-10-25 17:08] LABS: HEMATOCRIT 43.8 % (32.4-45.2); HEMOGLOBIN 14.1 GM/dL (10.7-15.3); MCHC 32.3 g/dl (32.0-36.0); MEAN CELL VOLUME 83.6 fl (80-96); MEAN PLT VOLUME 9.7 fl (7.5-11.1); PLATELET COUNT 243 10^3/uL (134-434); RBC 5.24 M/mm3 (3.60-5.2); RDW 16.7 % (11.6-15.6); WHITE BLOOD COUNT 3.2 K/mm3 (4.0-10.0)
[2022-10-25 17:33] LABS: CALCIUM 8.3 mg/dL (8.5-10.1)
[2022-10-25 17:34] LABS: ALBUMIN 2.8 g/dl (3.4-5.0); BLOOD UREA NITROGEN 13.1 mg/dL (7-18); MAGNESIUM 2.4 mg/dL (1.8-2.4)
[2022-10-25 17:37] LABS: CREATININE 0.8 mg/dL (0.55-1.3); PHOSPHOROUS 2.2 mg/dL (2.5-4.9)
[2022-10-25 17:38] LABS: BILIRUBIN,TOTAL 0.8 mg/dL (0.2-1)
[2022-10-25 17:42] LABS: N-TERMINAL BNP 195.3 pg/ml (5-450)
[2022-10-25 18:44] LABS: ANISOCYTOSIS 0; HELMET CELLS 0; HOWELL-JOLLY BODIES 0; MACROCYTOSIS 0; OVALOCYTE 0; ROULEAU 0; SICKELED CELLS 0; TARGET CELLS 0; TEAR DROP CELLS 0; TOXIC GRANULATION 0
[2022-10-25] MEDS ORDERED: SODIUM CHLORIDE 0.9% 500 ML INFUS.BAG IV ONE (21:37)
[2022-10-26] MEDS ORDERED: FUROSEMIDE 40 MG/4 ML INJECTABLE VIAL IVPUSH STA (04:03)
[2022-10-26] MEDS ORDERED: DEXAMETHASONE 4 MG TABLET (FP) PO STA (04:06)
[2022-10-26] MEDS ORDERED: REMDESIVIR 200 MG in SODIUM CHLORIDE 250 ML IVPB ONE (08:00)
[2022-10-26] MEDS ORDERED: LOSARTAN POTASSIUM 50 MG TABLET ONE (08:50)
[2022-10-26] MEDS ORDERED: APIXABAN 5 MG TABLET ONE (08:50)
[2022-10-26] MEDS ORDERED: HYDROCHLOROTHIAZIDE 25 MG TABLET (FP) ONE (08:50)
[2022-10-26] MEDS ORDERED: NIFEdipine E.R. 30 MG TABLET PO ONE (08:50)
[2022-10-26] MEDS: LOSARTAN POTASSIUM 50 MG TABLET PO SCH (09:33)
[2022-10-26] MEDS: HYDROCHLOROTHIAZIDE 25 MG TABLET (FP) PO SCH (09:34)
[2022-10-26] MEDS: NIFEdipine E.R. 30 MG TABLET PO SCH (09:34)
[2022-10-26] MEDS: APIXABAN 5 MG TABLET PO SCH ×2 (09:34→23:37)
[2022-10-26] MEDS ORDERED: DEXAMETHASONE 4 MG TABLET (FP) PO SCH (10:00)
[2022-10-26] MEDS ORDERED: FUROSEMIDE 40 MG/4 ML INJECTABLE VIAL IVPUSH SCH (10:00)
[2022-10-26] MEDS ORDERED: PATIENT'S OWN MEDICATION (NON-FORMULARY) (Olmesartan/Hydrochlorothiazide [Benicar Hct 40-2 PO SCH (10:00)
[2022-10-26] MEDS ORDERED: METHOTREXATE 2.5 MG TABLET PO SCH (10:00)
[2022-10-26] MEDS ORDERED: ACETAMINOPHEN 1000 MG/100 ML BAG IVPB PRN (20:58)
[2022-10-26] MEDS: NAPH,MB-DB/K PH,MBDB POWDER PACKET PO SCH (23:36)
[2022-10-26] MEDS: ATORVASTATIN CA 10 MG TABLET (FP) PO SCH (23:37)
[2022-10-27 01:41] VITALS: BMI 35.9
[2022-10-27 09:11] LABS: BASO % 0.3 % (0-2.0); EOS % 0.2 % (0-4.5); HEMATOCRIT 38.4 % (32.4-45.2); HEMOGLOBIN 12.6 GM/dL (10.7-15.3); LYMPH % 38.6 % (8-40); MCH 27.1 pg (25.7-33.7); MCHC 32.8 g/dl (32.0-36.0); MEAN CELL VOLUME 82.7 fl (80-96); MEAN PLT VOLUME 9.8 fl (7.5-11.1); MONO % 17.9 % (3.8-10.2); PLATELET COUNT 254 10^3/uL (134-434); RBC 4.64 M/mm3 (3.60-5.2); RDW 16.4 % (11.6-15.6); WHITE BLOOD COUNT 3.3 K/mm3 (4.0-10.0)
[2022-10-27 09:34] LABS: BLOOD UREA NITROGEN 14.8 mg/dL (7-18)
[2022-10-27 09:35] LABS: ALBUMIN 2.4 g/dl (3.4-5.0)
[2022-10-27 09:36] LABS: CALCIUM 7.8 mg/dL (8.5-10.1)
[2022-10-27 09:37] LABS: MAGNESIUM 2.2 mg/dL (1.8-2.4)
[2022-10-27 09:38] LABS: CREATININE 0.8 mg/dL (0.55-1.3); PHOSPHOROUS 2.5 mg/dL (2.5-4.9)
[2022-10-27 09:39] LABS: BILIRUBIN,TOTAL 0.9 mg/dL (0.2-1); TOT PROT 6.3 g/dl (6.4-8.2)
[2022-10-27] MEDS ORDERED: REMDESIVIR 100 MG in SODIUM CHLORIDE 250 ML IVPB SCH (10:00)
[2022-10-27] MEDS: LOSARTAN POTASSIUM 50 MG TABLET PO SCH (10:17)
[2022-10-27] MEDS: APIXABAN 5 MG TABLET PO SCH ×2 (10:17→21:13)
[2022-10-27] MEDS: DEXAMETHASONE 4 MG TABLET (FP) PO SCH (10:17)
[2022-10-27] MEDS: NIFEdipine E.R. 30 MG TABLET PO SCH (10:17)
[2022-10-27] MEDS: HYDROCHLOROTHIAZIDE 25 MG TABLET (FP) PO SCH (10:18)
[2022-10-27] MEDS: FUROSEMIDE 40 MG/4 ML INJECTABLE VIAL IVPUSH SCH (10:19)
[2022-10-27] MEDS: NAPH,MB-DB/K PH,MBDB POWDER PACKET PO SCH ×2 (10:19→21:14)
[2022-10-27] MEDS: REMDESIVIR 100 MG in SODIUM CHLORIDE 250 ML IVPB SCH (10:19)
[2022-10-27] MEDS: ACETAMINOPHEN 325 MG TABLET (FP) PO PRN (12:12)
[2022-10-27] MEDS: BENZOCAINE/MENTHOL 1 EACH LOZENGE MM SCH ×3 (14:22→21:28)
[2022-10-27] MEDS: ATORVASTATIN CA 10 MG TABLET (FP) PO SCH (21:13)
[2022-10-27] MEDS ORDERED: ALBUTEROL SO4 HFA INHALER IH PRN (22:14)
[2022-10-27] MEDS ORDERED: ACETAMINOPHEN 1000 MG/100 ML BAG IVPB ONE (23:09)
[2022-10-28] MEDS: BENZOCAINE/MENTHOL 1 EACH LOZENGE MM SCH ×5 (05:35→21:38)
[2022-10-28] MEDS: NAPH,MB-DB/K PH,MBDB POWDER PACKET PO SCH ×2 (11:19→21:38)
[2022-10-28] MEDS: APIXABAN 5 MG TABLET PO SCH ×2 (11:19→21:38)
[2022-10-28] MEDS: NIFEdipine E.R. 30 MG TABLET PO SCH (11:20)
[2022-10-28] MEDS: DEXAMETHASONE 4 MG TABLET (FP) PO SCH (11:20)
[2022-10-28] MEDS: FUROSEMIDE 40 MG/4 ML INJECTABLE VIAL IVPUSH SCH (11:20)
[2022-10-28] MEDS: HYDROCHLOROTHIAZIDE 25 MG TABLET (FP) PO SCH (11:20)
[2022-10-28] MEDS: LOSARTAN POTASSIUM 50 MG TABLET PO SCH (11:21)
[2022-10-28] MEDS: REMDESIVIR 100 MG in SODIUM CHLORIDE 250 ML IVPB SCH (11:21)
[2022-10-28 12:51] LABS: BASO % 0.1 % (0-2.0); EOS % 0.1 % (0-4.5); HEMATOCRIT 40.2 % (32.4-45.2); HEMOGLOBIN 13.1 GM/dL (10.7-15.3); LYMPH % 26.9 % (8-40); MCH 27.1 pg (25.7-33.7); MCHC 32.6 g/dl (32.0-36.0); MEAN CELL VOLUME 83.3 fl (80-96); MEAN PLT VOLUME 9.9 fl (7.5-11.1); MONO % 12.4 % (3.8-10.2); NEUT % 60.5 % (42.8-82.8); PLATELET COUNT 271 10^3/uL (134-434); RBC 4.83 M/mm3 (3.60-5.2); RDW 16.6 % (11.6-15.6); WHITE BLOOD COUNT 6.2 K/mm3 (4.0-10.0)
[2022-10-28 13:19] LABS: ALBUMIN 2.6 g/dl (3.4-5.0); CALCIUM 8.1 mg/dL (8.5-10.1)
[2022-10-28 13:20] LABS: BLOOD UREA NITROGEN 20.7 mg/dL (7-18); MAGNESIUM 2.1 mg/dL (1.8-2.4)
[2022-10-28 13:23] LABS: CREATININE 0.9 mg/dL (0.55-1.3)
[2022-10-28 13:24] LABS: BILIRUBIN,TOTAL 0.7 mg/dL (0.2-1); TOT PROT 6.5 g/dl (6.4-8.2)
[2022-10-28] MEDS: METHOTREXATE 2.5 MG TABLET PO SCH ×2 (15:16→19:41)
[2022-10-28] MEDS: ATORVASTATIN CA 10 MG TABLET (FP) PO SCH (21:37)
[2022-10-28] MEDS: ACETAMINOPHEN 325 MG TABLET (FP) PO PRN (21:38)
[2022-10-28] MEDS: POTASSIUM CHLORIDE ORAL LIQUID 20 MEQ/15 ML PO SCH (21:38)
[2022-10-28] MEDS ORDERED: LIDOCAINE 5% TOPICAL PATCH TP ONE (21:49)
[2022-10-28] MEDS ORDERED: POLYETHYLENE GLYCOL (HEALTHYLAX) 3350 17 GM PACKET PO SCH (22:00)
[2022-10-28] MEDS: guaiFENesin/D-M SUGAR-FREE/ACLHOL-FREE 118 ML BOTTLE PO PRN (22:19)
[2022-10-29] MEDS: guaiFENesin/D-M SUGAR-FREE/ACLHOL-FREE 118 ML BOTTLE PO PRN (06:15)
[2022-10-29] MEDS: BENZOCAINE/MENTHOL 1 EACH LOZENGE MM SCH ×6 (06:15→22:30)
[2022-10-29] MEDS: DEXAMETHASONE 4 MG TABLET (FP) PO SCH (09:05)
[2022-10-29] MEDS: POTASSIUM CHLORIDE ORAL LIQUID 20 MEQ/15 ML PO SCH ×2 (09:05→22:02)
[2022-10-29] MEDS: NAPH,MB-DB/K PH,MBDB POWDER PACKET PO SCH ×2 (09:05→22:02)
[2022-10-29] MEDS: HYDROCHLOROTHIAZIDE 25 MG TABLET (FP) PO SCH (09:06)
[2022-10-29] MEDS: APIXABAN 5 MG TABLET PO SCH ×2 (09:06→22:03)
[2022-10-29] MEDS: LOSARTAN POTASSIUM 50 MG TABLET PO SCH (09:06)
[2022-10-29] MEDS: NIFEdipine E.R. 30 MG TABLET PO SCH (09:06)
[2022-10-29] MEDS: REMDESIVIR 100 MG in SODIUM CHLORIDE 250 ML IVPB SCH (09:24)
[2022-10-29 09:47] LABS: BASO % 0.6 % (0-2.0); EOS % 0.1 % (0-4.5); HEMATOCRIT 41.3 % (32.4-45.2); HEMOGLOBIN 13.3 GM/dL (10.7-15.3); LYMPH % 29.1 % (8-40); MCH 27.2 pg (25.7-33.7); MCHC 32.3 g/dl (32.0-36.0); MEAN CELL VOLUME 84.2 fl (80-96); MEAN PLT VOLUME 10.8 fl (7.5-11.1); MONO % 8.9 % (3.8-10.2); NEUT % 61.3 % (42.8-82.8); PLATELET COUNT 284 10^3/uL (134-434); RDW 16.3 % (11.6-15.6); WHITE BLOOD COUNT 6.5 K/mm3 (4.0-10.0)
[2022-10-29] MEDS ORDERED: LIDOCAINE PATCH REMOVAL MC SCH (10:00)
[2022-10-29 10:05] LABS: CALCIUM 8.5 mg/dL (8.5-10.1)
[2022-10-29 10:06] LABS: ALBUMIN 2.6 g/dl (3.4-5.0); BLOOD UREA NITROGEN 20.2 mg/dL (7-18); MAGNESIUM 2.1 mg/dL (1.8-2.4)
[2022-10-29 10:09] LABS: CREATININE 0.9 mg/dL (0.55-1.3)
[2022-10-29 10:11] LABS: BILIRUBIN,TOTAL 0.6 mg/dL (0.2-1); TOT PROT 6.7 g/dl (6.4-8.2)
[2022-10-29] MEDS: ATORVASTATIN CA 10 MG TABLET (FP) PO SCH (22:03)
[2022-10-30] MEDS: BENZOCAINE/MENTHOL 1 EACH LOZENGE MM SCH ×5 (06:37→21:28)
[2022-10-30 09:20] LABS: HEMATOCRIT 39.2 % (32.4-45.2); HEMOGLOBIN 12.9 GM/dL (10.7-15.3); MCH 27.6 pg (25.7-33.7); MEAN CELL VOLUME 83.6 fl (80-96); MEAN PLT VOLUME 10.6 fl (7.5-11.1); PLATELET COUNT 254 10^3/uL (134-434); RBC 4.68 M/mm3 (3.60-5.2); RDW 16.5 % (11.6-15.6); WHITE BLOOD COUNT 7.1 K/mm3 (4.0-10.0)
[2022-10-30 09:28] LABS: PHOSPHOROUS 3.1 mg/dL (2.5-4.9)
[2022-10-30] MEDS: REMDESIVIR 100 MG in SODIUM CHLORIDE 250 ML IVPB SCH (10:56)
[2022-10-30] MEDS: DEXAMETHASONE 4 MG TABLET (FP) PO SCH (10:56)
[2022-10-30] MEDS: LOSARTAN POTASSIUM 50 MG TABLET PO SCH (10:56)
[2022-10-30] MEDS: POTASSIUM CHLORIDE ORAL LIQUID 20 MEQ/15 ML PO SCH ×2 (10:56→21:25)
[2022-10-30] MEDS: NIFEdipine E.R. 30 MG TABLET PO SCH (10:57)
[2022-10-30] MEDS: NAPH,MB-DB/K PH,MBDB POWDER PACKET PO SCH ×2 (10:57→21:24)
[2022-10-30] MEDS: HYDROCHLOROTHIAZIDE 25 MG TABLET (FP) PO SCH (10:57)
[2022-10-30] MEDS: APIXABAN 5 MG TABLET PO SCH ×2 (10:57→21:24)
[2022-10-30] MEDS: guaiFENesin/D-M SUGAR-FREE/ACLHOL-FREE 118 ML BOTTLE PO PRN (17:04)
[2022-10-30] MEDS: ATORVASTATIN CA 10 MG TABLET (FP) PO SCH (21:24)
[2022-10-30] MEDS ORDERED: LIDOCAINE 5% TOPICAL PATCH TP ONE (21:39)
[2022-10-30] MEDS: ACETAMINOPHEN 325 MG TABLET (FP) PO PRN (22:19)
[2022-10-31] MEDS: BENZOCAINE/MENTHOL 1 EACH LOZENGE MM SCH ×3 (06:05→13:11)
[2022-10-31 07:23] LABS: HEMATOCRIT 38.8 % (32.4-45.2); HEMOGLOBIN 12.8 GM/dL (10.7-15.3); MCH 27.6 pg (25.7-33.7); MCHC 32.9 g/dl (32.0-36.0); MEAN PLT VOLUME 10.6 fl (7.5-11.1); PLATELET COUNT 243 10^3/uL (134-434); RBC 4.61 M/mm3 (3.60-5.2); RDW 16.7 % (11.6-15.6); WHITE BLOOD COUNT 6.6 K/mm3 (4.0-10.0)
[2022-10-31] MEDS ORDERED: LIDOCAINE PATCH REMOVAL MC SCH (10:00)
[2022-10-31 11:11] LABS: CALCIUM 8.5 mg/dL (8.5-10.1)
[2022-10-31 11:12] VITALS: RESP 17
[2022-10-31 11:12] LABS: ALBUMIN 2.4 g/dl (3.4-5.0); BLOOD UREA NITROGEN 25.4 mg/dL (7-18)
[2022-10-31 11:16] LABS: TOT PROT 6.3 g/dl (6.4-8.2)
[2022-10-31 11:17] LABS: BILIRUBIN,TOTAL 0.5 mg/dL (0.2-1)
[2022-10-31] MEDS: LOSARTAN POTASSIUM 50 MG TABLET PO SCH (11:17)
[2022-10-31] MEDS: DEXAMETHASONE 4 MG TABLET (FP) PO SCH (11:17)
[2022-10-31] MEDS: NIFEdipine E.R. 30 MG TABLET PO SCH (11:18)
[2022-10-31] MEDS: APIXABAN 5 MG TABLET PO SCH (11:18)
[2022-10-31] MEDS: NAPH,MB-DB/K PH,MBDB POWDER PACKET PO SCH (11:18)
[2022-10-31] MEDS: HYDROCHLOROTHIAZIDE 25 MG TABLET (FP) PO SCH (11:18)
[2022-10-31 13:36] LABS: CALCIUM 8.4 mg/dL (8.5-10.1)
[2022-10-31 13:37] LABS: ALBUMIN 2.5 g/dl (3.4-5.0); MAGNESIUM 1.9 mg/dL (1.8-2.4)
[2022-10-31 13:40] LABS: CREATININE 0.9 mg/dL (0.55-1.3)
[2022-10-31 13:41] LABS: BILIRUBIN,TOTAL 0.5 mg/dL (0.2-1); TOT PROT 6.2 g/dl (6.4-8.2)
[2022-10-31 14:53] VITALS: BP 143/55; PULSE 61; TEMP 98.4
[2022-11-01] MEDS ORDERED: METHOTREXATE 2.5 MG TABLET PO SCH (10:00)
== END 2022-10-31 18:22 | disposition home or self-care (01) | DRG 179 ==
LOC: JER 14:11 → JERBED 19:48 → OBSVTOIN 10-26 04:12 → J4S 10-26 23:13
PROVIDERS: ADMIT Internal Medicine; ATTEND Internal Medicine
PROC: XW033E5 Introduction of Remdesivir Anti-infective into Peripheral Vein, Percutaneous Approach, New Technology Group 5 (ICD-10-PCS; principal; 2022-10-25)
DX: U07.1 COVID-19 (principal); I10 Essential (primary) hypertension; L40.50 Arthropathic psoriasis, unspecified; I50.9 Heart failure, unspecified; E78.5 Hyperlipidemia, unspecified; L40.9 Psoriasis, unspecified; R11.2 Nausea with vomiting, unspecified; M17.0 Bilateral primary osteoarthritis of knee; Z99.81 Dependence on supplemental oxygen; E87.6 Hypokalemia; E66.9 Obesity, unspecified; Z68.35 Body mass index [BMI] 35.0-35.9, adult
CPT/HCPCS: 0241U-QW; 36415; 71045-TC-FY; 80053; 83735; 83880; 84100; 84484; 85025; 85027; 86140; 93005; 93010; 93971-TC; 94761; 97116-GP; 97161-GP; 99285-25; C9399; G0378